=== PATIENT | female | born 1950 | race Caucasian/White ===

== ENCOUNTER 2020-05-20 18:19 | Emergency (ER) | payer MEDICARE ==
--- NOTE | 2020-05-20 19:02 | EDM.PDOC ---
ED HPI GENERAL MEDICAL PROBLEM - General Chief Complaint: Abdominal Pain Stated Complaint: BACK AND LOW ABD PAIN Time Seen by Provider: 05/20/20 18:54 - History of Present Illness INITIAL COMMENTS - FREE TEXT/NARRATIVE: 70-year-old female presents the emergency room with abdominal pain. This pain started last evening comes and goes isolated to the left side of the abdomen. It reminds her very much of a kidney stone. The pain started in her back and worked its way down the left side of her abdomen into her leg. It moves up and down a little bit causes quite a bit of discomfort she is tried some ibuprofen without much relief. She has had some nausea no associated vomiting. She is on multiple stones in the past some of which have had to be retrieved. Patient is not having any breathing difficulty shortness of breath chest pain or chest pressure. She has not noticed any blood in her urine Abdomen Pain Score (Numeric/FACES): 6 - Related Data Allergies Allergy/AdvReac Type Severity Reaction Status Date / Time acetaminophen [From Percocet] Allergy Hives Verified 05/20/20 18:54 adhesive Allergy Blisters Verified 05/20/20 18:54 amoxicillin Allergy Hives Verified 05/20/20 18:54 aspirin [From Fiorinal] Allergy Hives Verified 05/20/20 18:54 budesonide [From Symbicort] Allergy Hives Verified 05/20/20 18:54 butalbital [From Fiorinal] Allergy Hives Verified 05/20/20 18:54 caffeine [From Fiorinal] Allergy Hives Verified 05/20/20 18:54 clindamycin Allergy Hives Verified 05/20/20 18:54 doxycycline Allergy Hives Verified 05/20/20 18:54 empagliflozin Allergy Hives Verified 05/20/20 18:54 [From Jardiance] fenofibrate Allergy Hives Verified 05/20/20 18:54 formoterol [From Symbicort] Allergy Hives Verified 05/20/20 18:54 iodine Allergy Hives Verified 05/20/20 18:54 lansoprazole [From Prevacid] Allergy Hives Verified 05/20/20 18:54 morphine Allergy Hives Verified 05/20/20 18:54 oxycodone [From Percocet] Allergy Hives Verified 05/20/20 18:54 salmeterol [From Serevent] Allergy Hives Verified 05/20/20 18:54 Sulfa (Sulfonamide Allergy Swelling Verified 05/20/20 18:54 Antibiotics) sumatriptan [From Imitrex] Allergy Hives Verified 05/20/20 18:54 Home Meds: Home Meds Albuterol [Proventil HFA] 1 inh PO DAILY PRN 05/20/20 [History] Cholecalciferol (Vitamin D3) [Vitamin D] 1 tab PO DAILY 05/20/20 [History] Cyclobenzaprine [Flexeril] 1 tab PO DAILY 05/20/20 [History] Escitalopram Oxalate [Lexapro] 1 tab PO DAILY 05/20/20 [History] Fluticasone Propionate [Flovent HFA 110 MCG] 2 inh PO BID 05/20/20 [History] Folic Acid 1 tab PO DAILY 05/20/20 [History] Gabapentin [Neurontin] 3 tab PO DAILY PRN 05/20/20 [History] Hydroxychloroquine [Plaquenil] 1 tab PO DAILY 05/20/20 [History] Insulin Glarg,Human.Rec.Analog [Lantus] 34 units SQ BEDTIME 05/20/20 [History] Levothyroxine [Synthroid] 1 tab PO DAILY 05/20/20 [History] Meloxicam 1 tab PO DAILY 05/20/20 [History] Montelukast Sodium [Singulair] 10 mg PO DAILY PRN 05/20/20 [History] Potassium Chloride 1 tab PO BID 05/20/20 [History] Propranolol HCl [Propranolol] 1 tab PO DAILY 05/20/20 [History] RABEprazole Sodium [Aciphex] 1 tab PO DAILY 05/20/20 [History] Simvastatin 40 mg PO DAILY 05/20/20 [History] buPROPion [Wellbutrin SR] 1 tab PO DAILY 05/20/20 [History] lisinopriL [Lisinopril] 1 tab PO DAILY 05/20/20 [History] ED ROS GENERAL - Review of Systems Review Of Systems: See Below Constitutional: Reports: No Symptoms HEENT: Reports: No Symptoms Respiratory: Reports: No Symptoms Cardiovascular: Reports: No Symptoms GI/Abdominal: Reports: Abdominal Pain, Constipation, Diarrhea, Nausea. Denies: Vomiting : Reports: Flank Pain. Denies: Frequency, Hematuria, Pain, Urgency Musculoskeletal: Reports: Back Pain Skin: Reports: No Symptoms Neurological: Reports: No Symptoms Psychiatric: Reports: No Symptoms Hematologic/Lymphatic: Reports: No Symptoms Immunologic: Reports: No Symptoms ED EXAM, GI/ABD - Physical Exam Exam: See Below Exam Limited By: No Limitations General Appearance: Alert, No Apparent Distress Head: Atraumatic, Normocephalic Neck: Normal Inspection, Supple, Non-Tender, Full Range of Motion Respiratory/Chest: No Respiratory Distress, Lungs Clear, Normal Breath Sounds Cardiovascular: Normal Peripheral Pulses, No Edema GI/Abdominal Exam: Normal Bowel Sounds, Soft, Other (Is moderate tenderness on the left side of her abdomen minimally aggravated with palpation no rigidity rebound or guarding noted) Back Exam: Normal Inspection, CVA Tenderness (L). No: Vertebral Tenderness Neurological: Alert, Oriented, Normal Gait Psychiatric: Normal Affect, Normal Mood Skin Exam: Warm, Dry, Intact Course - Vital Signs Last Recorded V/S: Last Vital Signs Temp 36.8 C 05/20/20 18:42 Pulse 72 05/20/20 18:42 Resp 16 05/20/20 18:42 BP 125/57 L 05/20/20 18:42 Pulse Ox 94 L 05/20/20 18:42 - Orders/Labs/Meds Orders: Active Orders 24 hr Category Date Time Status Abdomen Pelvis wo Cont [CT] Stat Exams 05/20/20 19:22 Taken CORONAVIRUS COVID-19 LEANA [MOLEC] Stat Lab 05/20/20 20:49 Ordered CULTURE BLOOD [BC] Stat Lab 05/20/20 20:44 Ordered CULTURE BLOOD [BC] Stat Lab 05/20/20 20:44 Ordered CULTURE URINE [RM] Stat Lab 05/20/20 20:05 Received CULTURE URINE [RM] Stat Lab 05/20/20 20:33 Ordered Sodium Chloride 0.9% @ 125 MLS/HR (1000ml Bag) Med 05/20/20 21:15 Ordered Sodium Chloride 0.9% [Normal Saline] 1,000 ml IV ASDIRECTED cefTRIAXone [Rocephin] 2 gm Med 05/20/20 21:13 Ordered Sodium Chloride 0.9% [Normal Saline] 100 ml IV ONETIME Blood Culture x2 Reflex Set [OM.PC] Stat Oth 05/20/20 20:43 Ordered Medication Orders Ceftriaxone Sodium 2 gm/ (Sodium Chloride) 100 mls @ 200 mls/hr IV ONETIME ONE Stop: 05/20/20 21:42 Sodium Chloride (Normal Saline) 1,000 mls @ 125 mls/hr IV ASDIRECTED [facility] Labs: Laboratory Tests 05/20/20 05/20/20 05/20/20 Range/Units 19:38 19:38 20:05 WBC 13.20 H (3.98-10.04) K/mm3 RBC 3.78 L (3.98-5.22) M/mm3 Hgb 11.7 (11.2-15.7) gm/dl Hct 35.8 (34.1-44.9) % MCV 94.7 (79.4-94.8) fl MCH 31.0 (25.6-32.2) pg MCHC 32.7 (32.2-35.5) g/dl RDW Std Deviation 40.8 (36.4-46.3) fL Plt Count 204 (182-369) K/mm3 MPV 9.3 L (9.4-12.3) fl Neut % (Auto) 87.5 H (34.0-71.1) % Lymph % (Auto) 5.8 L (19.3-51.7) % [place] % (Auto) 6.3 (4.7-12.5) % Eos % (Auto) 0.1 L (0.7-5.8) Baso % (Auto) 0.1 (0.1-1.2) % Neut # (Auto) 11.56 H (1.56-6.13) K/mm3 Lymph # (Auto) 0.77 L (1.18-3.74) K/mm3 [place] # (Auto) 0.83 H (0.24-0.36) K/mm3 Eos # (Auto) 0.01 L (0.04-0.36) K/mm3 Baso # (Auto) 0.01 (0.01-0.08) K/mm3 Manual Slide Review Abnormal smear Sodium 142 (136-145) mEq/L Potassium 4.0 (3.5-5.1) mEq/L Chloride 105 (98-107) mEq/L Carbon Dioxide 27 (21-32) mEq/L Anion Gap 14.0 (5-15) BUN 20 H (7-18) mg/dL Creatinine 1.5 H (0.55-1.02) mg/dL Est Cr Clr Drug Dosing 27.60 mL/min Estimated GFR (MDRD) 34 (>60) mL/min BUN/Creatinine Ratio 13.3 L (14-18) Glucose 84 (80-115) mg/dL Calcium 9.0 (8.5-10.1) mg/dL Total Bilirubin 0.7 (0.2-1.0) mg/dL AST 16 (15-37) U/L ALT 11 L (14-59) U/L Alkaline Phosphatase 67 (46-116) U/L Total Protein 7.3 (6.4-8.2) g/dl Albumin 3.3 L (3.4-5.0) g/dl Globulin 4.0 gm/dL Albumin/Globulin Ratio 0.8 L (1-2) Urine Color Yellow (Yellow) Urine Appearance Clear (Clear) Urine pH 5.5 (5.0-8.0) Ur Specific [place] > or = 1.030 (1.005-1.030) Urine Protein Trace H (Negative) Urine Glucose (UA) Negative (Negative) Urine Ketones Negative (Negative) Urine Occult Blood 2+ H (Negative) Urine Nitrite Positive H (Negative) Urine Bilirubin Negative (Negative) Urine Urobilinogen 0.2 (0.2-1.0) Ur Leukocyte Esterase 1+ H (Negative) Urine RBC 0-5 (0-5) /hpf Urine WBC 10-20 H (0-5) /hpf Ur Squamous Epith Cells 5-10 H (0-5) /hpf Urine Bacteria Moderate H (FEW) /hpf Urine Mucus Few (FEW) /hpf Meds: Medications Generic Name Dose Route Start Last Admin Trade Name Freq PRN Reason Stop Dose Admin Ceftriaxone Sodium 2 gm/ 100 mls @ 200 mls/hr 05/20/20 21:13 Sodium Chloride IV 05/20/20 21:42 ONETIME ONE Sodium Chloride 1,000 mls @ 125 mls/hr 05/20/20 21:15 Normal Saline IV ASDIRECTED SAMANTHA Discontinued Medications Generic Name Dose Route Start Last Admin Trade Name Freq PRN Reason Stop Dose Admin Fentanyl 50 mcg 05/20/20 19:24 05/20/20 19:39 Sublimaze IVPUSH 05/20/20 19:25 50 mcg ONETIME ONE Administration Lactated Ringer's 1,000 mls @ 125 mls/hr 05/20/20 19:30 05/20/20 19:39 Ringers, Lactated IV 125 mls/hr ASDIRECTED SAMANTHA Administration - Re-Assessments/Exams Free Text/Narrative Re-Assessment/Exam: 05/20/20 21:19 No beds available in [place] Case discussed with Dr. Canela hospitalist and Dr. Donohue urologist at [facility] in [place]. They agree with 2 g of Rocephin and Dr. Canela, the hospitalist is kind enough to accept the patient in transfer.. Has a large obstructing left proximal ureter stone 0.7 x 0.9 cm and is developing a urinary tract infection. Departure - Departure Time of Disposition: 21:20 Disposition: DC/Tfer to [facility] 02 Clinical Impression: Calculus of left kidney, Urinary tract infection - Discharge Information Referrals: PCP,Not In Area [Primary Care Provider] - Forms: ED Department Discharge Sepsis Event Note (ED) - Evaluation Sepsis Screening Result: No Definite Risk - Focused Exam Vital Signs: Vital Signs Temp Pulse Resp BP Pulse Ox 05/20/20 18:42 36.8 C 72 16 125/57 L 94 L - My Orders Last 24 Hours: My Active Orders 05/20/20 19:22 Abdomen Pelvis wo Cont [CT] Stat 05/20/20 20:05 CULTURE URINE [RM] Stat 05/20/20 20:33 CULTURE URINE [RM] Stat 05/20/20 20:43 Blood Culture x2 Reflex Set [OM.PC] Stat 05/20/20 20:44 CULTURE BLOOD [BC] Stat CULTURE BLOOD [BC] Stat 05/20/20 20:49 CORONAVIRUS COVID-19 LEANA [MOLEC] Stat 05/20/20 21:13 cefTRIAXone [Rocephin] 2 gm Sodium Chloride 0.9% [Normal Saline] 100 ml IV ONETIME 05/20/20 21:15 Sodium Chloride 0.9% @ 125 MLS/HR (1000ml Bag) Sodium Chloride 0.9% [Normal Saline] 1,000 ml IV ASDIRECTED - Assessment/Plan Last 24 Hours: My Active Orders 05/20/20 19:22 Abdomen Pelvis wo Cont [CT] Stat 05/20/20 20:05 CULTURE URINE [RM] Stat 05/20/20 20:33 CULTURE URINE [RM] Stat 05/20/20 20:43 Blood Culture x2 Reflex Set [OM.PC] Stat 05/20/20 20:44 CULTURE BLOOD [BC] Stat CULTURE BLOOD [BC] Stat 05/20/20 20:49 CORONAVIRUS COVID-19 LEANA [MOLEC] Stat 05/20/20 21:13 cefTRIAXone [Rocephin] 2 gm Sodium Chloride 0.9% [Normal Saline] 100 ml IV ONETIME 05/20/20 21:15 Sodium Chloride 0.9% @ 125 MLS/HR (1000ml Bag) Sodium Chloride 0.9% [Normal Saline] 1,000 ml IV ASDIRECTED
[2020-05-20] MEDS ORDERED: fentaNYL 100 MCG/2 ML SDV IVPUSH ONE (19:24)
[2020-05-20] MEDS ORDERED: Lactated Ringers 1,000 ML IV SCH (19:30)
[2020-05-20] MEDS ORDERED: cefTRIAXone 2 GM in Sodium Chloride 0.9% 100 ML IV ONE (21:13)
[2020-05-20] MEDS ORDERED: Sodium Chloride 0.9% 1,000 ML IV SCH (21:15)
[2020-05-20] MEDS ORDERED: Acetaminophen 325 MG Tab PO ONE (21:25)
== END 2020-05-20 23:11 ==
LOC: JD.ED 18:19
DX: N13.2 Hydronephrosis with renal and ureteral calculous obstruction (principal); N39.0 Urinary tract infection, site not specified; Z88.2 Allergy status to sulfonamides; Z88.5 Allergy status to narcotic agent; Z88.8 Allergy status to other drugs, medicaments and biological substances; Z88.1 Allergy status to other antibiotic agents; Z91.09 Other allergy status, other than to drugs and biological substances
CPT/HCPCS: 36415; 74176; 80053; 81001; 85025; 87040; 87086; 87088; 87186; 96365; 96375; 99285; A9270; J0696; J3010; J7030; J7050; J7120; U0002; 99284